=== PATIENT | female | born 1990 | race African-American/Black ===

== ENCOUNTER 2016-10-01 16:46 | Emergency (ER) | payer OTHER ==
[~2016-10-01] VITALS: Ht 160 cm; Wt 84.0 kg
[~2016-10-01 16:46] MED LIST: CALCIUM; FERR325T6 PO; IRON; LOPRESSOR; PREN-127 PO; PRENATAL VIT; SENN-18 PO
[2016-10-01 18:09] VITALS: BP 153/96
[2016-10-01] MEDS ORDERED: KETOROLAC 60MG/2ML VIAL IM ONE (18:15)
== END 2016-10-01 18:53 | disposition home or self-care (01) ==
LOC: ER 16:48
DX: M72.2 Plantar fascial fibromatosis (principal); Z98.890 Other specified postprocedural states
CPT/HCPCS: 96372; 99283; J1885; Z7610

== ENCOUNTER 2017-09-21 12:55 | Emergency (ER) | payer OTHER ==
[~2017-09-21] VITALS: Ht 167.6 cm; Wt 73.0 kg
[2017-09-21] MEDS ORDERED: SODIUM CHLORIDE 0.9% 1000ML BAG (SEPSIS BOLUS) IV ONE (15:45)
[2017-09-21] MEDS: KETOROLAC 30MG/ML VIAL IV STA ×2 (15:49→17:10)
[2017-09-21 16:10] LABS: HEMATOCRIT. 36.2 % (36.0-48.0); HEMOGLOBIN. 12.5 g/dL (12.0-16.0); MEAN CORPUSCULAR HEMOGLOBIN 29.1 pg (28.0-32.0); MEAN CORPUSCULAR VOLUME 84.1 fL (81.0-99.0); PLATELET 248 x1000/uL (130-400); RED BLOOD CELL COUNT 4.31 mill/uL (4.2-5.4); RED CELL DISTRIBUTION WIDTH 13.7 % (11.6-14.6)
[2017-09-21 16:15] LABS: PROTHROMBIN TIME 10.7 sec (9.4-11.6)
[2017-09-21 16:16] LABS: CHLORIDE 101 mEq/L (98-107)
[2017-09-21 16:24] LABS: CLARITY URINE CLEAR (CLEAR); COLOR URINE YELLOW (YELLOW); KETONES URINE 1+ (NEGATIVE); LEUKOCYTE ESTERASE URINE NEGATIVE (NEGATIVE); NITRITE URINE NEGATIVE (NEGATIVE); OCCULT BLOOD URINE NEGATIVE (NEGATIVE); PH URINE 5.5 (4.5-8.0); PROTEIN URINE NEGATIVE (NEGATIVE); SPECIFIC GRAVITY URINE 1.031 (1.005-1.030); UROBILINOGEN URINE 0.2 E.U./dL (0.2-1.0)
[2017-09-21 16:30] LABS: PLATELET ESTIMATE NORMAL
[2017-09-21] MEDS ORDERED: VANCOMYCIN 1 G PREMIX 200 ML IV STA (17:38)
[2017-09-21] MEDS ORDERED: CEFEPIME 1,000 MG in DEXTROSE 5% WATER 50 ML IV SCH (18:00)
[2017-09-21 22:19] VITALS: BP 103/50
== END 2017-09-21 22:23 | disposition left against medical advice (07) ==
LOC: ER 13:30 → CANBEDREQ 09-22 01:07
DX: A41.9 Sepsis, unspecified organism (principal); T36.8X5A Adverse effect of other systemic antibiotics, initial encounter; N75.0 Cyst of Bartholin's gland; D72.825 Bandemia; R00.0 Tachycardia, unspecified; E11.9 Type 2 diabetes mellitus without complications; Y92.89 Other specified places as the place of occurrence of the external cause
CPT/HCPCS: 36415; 71045; 80053; 81003; 81025; 82962; 83605; 85025; 85610; 87040; 87086; 93005; 96361; 96365; 96367; 96375; 99291; J0692; J1885; J3370; J7030; Z7610; J7060

== ENCOUNTER 2021-11-22 19:40 | Emergency (ER) | payer OTHER ==
[~2021-11-22] VITALS: Ht 157.5 cm; Wt 79.3 kg
[2021-11-22] MEDS ORDERED: KETOROLAC 60MG/2ML VIAL IM ONE (21:30)
[2021-11-22 21:53] VITALS: BP 146/96
[2021-11-22] MEDS ORDERED: METH-773 MT (22:51)
== END 2021-11-22 23:15 | disposition home or self-care (01) ==
LOC: ER 19:40
DX: S89.81XA Other specified injuries of right lower leg, initial encounter (principal); M54.6 Pain in thoracic spine; M54.59 Other low back pain; M25.511 Pain in right shoulder; M54.2 Cervicalgia; E11.9 Type 2 diabetes mellitus without complications; V49.49XA Driver injured in collision with other motor vehicles in traffic accident, initial encounter; Y93.89 Activity, other specified; Y92.488 Other paved roadways as the place of occurrence of the external cause
CPT/HCPCS: 72070; 72100; 73562; 73590; 81025; 96372; 99284; J1885; L1830

== ENCOUNTER 2024-11-25 15:21 | Emergency (ER) | payer MEDICAID, OTHER ==
[~2024-11-25] VITALS: Ht 167.6 cm; Wt 847.0 kg
[~2024-11-25 15:21] MED LIST changes: +METH-773 MT
[2024-11-25 15:24] VITALS: O2SAT 98
[2024-11-25] MEDS ORDERED: MORPHINE SULFATE 4 MG/ML INJ (FOR IV/IM USE) IV ONE (15:45)
[2024-11-25] MEDS: MORPHINE SULFATE 4 MG/ML INJ (FOR IV/IM USE) IV SCH (16:15)
[2024-11-25] MEDS: MORPHINE SULFATE 4 MG/ML INJ (FOR IV/IM USE) IV ONE ×2 (16:27→18:16)
[2024-11-25] MEDS: ONDANSETRON HCL 4MG/2ML INJ IV ONE (16:28)
[2024-11-25] MEDS: SODIUM CHLORIDE 0.9% 1,000 ML IV ONE (16:38)
[2024-11-25 18:26] VITALS: TEMP 36.9
[2024-11-25 21:12] VITALS: BP 122/75; PULSE 76; RESP 18; O2SAT 100
== END 2024-11-25 21:20 | disposition home or self-care (01) ==
LOC: ER 15:21
DX: O03.4 Incomplete spontaneous abortion without complication (principal); O24.111 Pre-existing type 2 diabetes mellitus, in pregnancy, first trimester; Z79.899 Other long term (current) drug therapy; Z98.890 Other specified postprocedural states; Z88.1 Allergy status to other antibiotic agents; Z3A.08 8 weeks gestation of pregnancy
CPT/HCPCS: 99285; 96374; 96361; 76801; 96375; 76817; 96376; J2405; J2270; J7030